=== PATIENT | male | born 1990 | race Caucasian/White ===

== ENCOUNTER 2020-01-27 18:14 | Emergency (ER) | payer BC, SELFPAY ==
[2020-01-27 18:15] VITALS: BP 111/89; PULSE 85; RESP 16; TEMP 36.1; O2SAT 99; BMI 26.6
--- NOTE | 2020-01-27 18:30 | RAD_ITS ---
STUDY: X-RAY - RIGHT FOOT CLINICAL: Male, 29 years old. KICKED SOMETHING 1 WEEK AGO. PAIN TO TOP OF RIGHT FOOT. TECHNIQUE: 3 view(s) of the foot. COMPARISON: None. FINDINGS: No acute fracture, dislocation or osseous destruction. No significant joint space narrowing. No significant productive changes. No significant soft tissue swelling. IMPRESSION: Normal x-ray examination of the foot. Electronically Signed: Papo Garcia, at 18:52 EST Tel , Service support , RAD/Foot min 3 Views
--- NOTE | 2020-01-27 19:00 | ED.VISSUMM ---
- ER Visit Summary Date of Service: 01/27/20 Chief Complaint: Right foot injury History of Present Illness: The patient is a 29 M presenting with right foot injury. Patient states this occurred 6 days ago. He states that he was wrestling and his dog thought he was being aggressive and bit him. He states he reflexively then kicked the dog. He had pain in his right foot afterwards. He states it worsened the next day. The dog bite did not break his skin. No other injuries. Physical Examination: Vitals are stable. Patient is afebrile. Alert no acute distress. HEENT exam is unremarkable. Neck is supple. Lungs are clear and equal bilaterally. Heart is regular rate and rhythm. Extremities right midfoot tenderness. Normal pulses. No ankle or knee tenderness. Skin is warm and dry. Remainder of exam is unremarkable. Emergency Department Course and Treatment: Right foot x-ray was interpreted by myself and radiology as normal x-ray examination of the foot. Patient was given a postop shoe. He declined crutches. Advised to ice and elevate and use NSAIDs for pain. Advised to follow-up with primary care physician. Advised return to the ED for worsening complaints. Disposition: Discharge home Impression: Right foot contusion This note was generated with [employer] dictation software. It may contain incorrect words, spelling, and punctuation that were not noted in review of the chart prior to signing ED Disposition - Plan for ED Patient: Instructions: ED Foot Sprain Referrals: Care Physician,No Primary [Primary Care Provider] -
--- NOTE | 2020-01-27 19:06 | ED.DEP ---
ED Disposition - Plan for ED Patient: Instructions: ED Foot Sprain Referrals: Care Physician,No Primary [Primary Care Provider] -
== END 2020-01-27 19:20 | disposition home or self-care (01) ==
LOC: ED 18:50
PROVIDERS: Emergency Provider Emergency Medicine
DX: S90.31XA Contusion of right foot, initial encounter (principal); W54.0XXA Bitten by dog, initial encounter; Y93.72 Activity, wrestling; Y92.9 Unspecified place or not applicable
CPT/HCPCS: 73630; 99283